=== PATIENT | female | born 1950 | race Caucasian/White ===

== ENCOUNTER 2019-06-08 07:30 | Inpatient (IN) | payer MEDICARE, OTHER ==
[~2019-06-08] VITALS: Ht 167.6 cm; Wt 71.9 kg
[~2019-06-08 07:30] MED LIST: AMLO5 PO; ASPI81EC PO; CITA20 PO; FAMO20 PO; INDERAL; LEVSOD100 PO; MULTI VITAMIN1 EACH PO; OMEP20ER PO
[2019-07-26] MEDS ORDERED: VITAMIN D32000 UNI2 PO (15:19)
--- NOTE | 2019-08-03 06:47 | NUR ---
Ambulatory in Day Surgery History, Chart, Medications and Allergies reviewed before start of procedure. Lungs clear T/O to Auscultation. Patient confirms NPO status and agrees with scheduled surgery. Pre-Op teaching done. Pt verbalizes understanding.
--- NOTE | 2019-08-03 11:18 | NUR ---
ADMISSION TO UNIT PT ARRIVED TO UNIT AT APROX 1045 FROM PACU. AQUACEL DRESSING TO L HIP C/D/I. PT REPORTS FULL SENSATION, CAP REFILL WNL, WIGGLES TOES. PT REPORTS PAIN 2/10-ACHY. POLAR PACK/ BILAT SCD'S/JOSE JUAN HOSE IN PLACE.
--- NOTE | 2019-08-03 18:41 | NUR ---
SHIFT SUMMARY PT POD 0 L MILADIS. AQUACEL DRESSING TO L HIP C/D/I, POLAR PACK IN PLACE. MEDICATED WITH 2 ROXICODONE ONCE FOR PAIN. EMESIS 100ML ONCE, MEDICATED WITH ZOFRAN. UP WITH PT, AMBULATING SBA W/FWW IN HALLWAY. PLAN TO DC HOME TOMORROW IF NO CHANGES
--- NOTE | 2019-08-04 04:26 | NUR ---
SUMMARY POD #1 DRSG REMAINS C/D/I. PT IS AMBULATING 1 ASSIST TO THE BATHROOM USING FWW/GAIT BELT. PAIN MANAGED WITH PO PAIN MEDS. PT IS TOLERATING PO INTAKE. VOIDING WNL. TEDS/SCD'S AND POLAR PACK IN PLACE. CALL LIGHT IN REACH, WCTM.
[2019-08-04 04:33] LABS: BASOPHILS ABSOLUTE AUTO 0.05 K/mm3 (0.00-0.23); BASOPHILS PERCENT AUTO 0 % (0-2); EOSINOPHILS PERCENT AUTO 0 % (0-6); Hemoglobin 10.5 g/dL (11.5-16.0); IMMATURE GRAN ABSOLUTE AUTO 0.05 K/mm3 (0.00-0.10); IMMATURE GRAN PERCENT AUTO 0 % (0-1); LYMPHOCYTES ABSOLUTE AUTO 1.31 K/mm3 (0.84-5.20); LYMPHOCYTES PERCENT AUTO 11 % (21-46); MONOCYTES ABSOLUTE AUTO 0.67 K/mm3 (0.16-1.47); MONOCYTES PERCENT AUTO 6 % (4-13); Mean Corpuscular HGB 30.7 pg (26.0-34.0); Mean Corpuscular HGB Conc 33.9 g/dL (31.5-36.5); Mean Corpuscular Volume 91 fL (80-100); NEUTROPHILS ABSOLUTE AUTO 9.85 K/mm3 (1.96-9.15); NEUTROPHILS PERCENT AUTO 83 % (41-73); Platelet Count 141 K/mm3 (150-400); RDW Coefficient Variation 13.7 % (11.7-14.2); RDW Standard Deviation 44.8 fL (35.1-46.3); Red Blood Cell Count 3.42 M/mm3 (3.80-5.20); White Blood Cell Count 11.93 K/mm3 (4.00-11.30)
[2019-08-04 04:54] LABS: Anion Gap 6 mmol/L (6-16); Blood Urea Nitrogen 12 mg/dL (8-24); Bun/Creatinine Ratio 14.2 (12.0-20.0); CO2, Blood 28 mmol/L (21-32); Calcium, Blood 8.6 mg/dL (8.5-10.1); Chloride, Blood 99 mmol/L (98-108); Creatinine, Blood 0.84 mg/dL (0.40-1.00); Glomerular Filtration Rate >60 (60-); Glucose, Blood 130 mg/dL (70-99); Potassium, Blood 4.3 mmol/L (3.5-5.5); Sodium, Blood 133 mmol/L (136-145)
[2019-08-04] MEDS ORDERED: XARELTO15 MG PO (10:49)
[2019-08-04] MEDS ORDERED: ONDA4ODT PO (11:23)
--- NOTE | 2019-08-04 15:20 | NUR ---
1156 ZOFRAN GIVEN FOR NAUSEA
--- NOTE | 2019-08-04 15:21 | NUR ---
1415 PAIN ROXICODONE GIVEN FOR LEVEL 2-3 PAIN PATIENT IS ANTICIPATING DISCHARGE TO HOME WITHING THE NEXT HOUR. DISCHARGE INSTRUCTIONS REVIEWED WITH PATIENT AND HER DAUGHTER AND QUESTIONS ANSWERED
--- NOTE | 2019-08-04 15:22 | NUR ---
1500 DISCHARGE DISCHARGED TO HOME WITH
== END 2019-08-04 15:12 | disposition home or self-care (01) | DRG 470 ==
LOC: SURS 08-03 06:04 → PRE IP 08-03 07:30 → SURS 08-03 10:53
PROVIDERS: ADMIT Orthopaedic Surgery
PROC: 0SRB04A Replacement of Left Hip Joint with Ceramic on Polyethylene Synthetic Substitute, Uncemented, Open Approach (ICD-10-PCS; principal; 2019-08-03 07:30)
DX: M16.12 Unilateral primary osteoarthritis, left hip (principal)
CPT/HCPCS: 36415; 72170; 80048; 85025; 86850; 86900; 86901; 88300; 97110; 97116; 97161; 97530; C1776; J0171; J0690; J0735; J1100; J1885; J2250; J2370; J2405; J2704; J2765; J2795; J3010; J7120

== ENCOUNTER → 2019-09-01 | Outpatient (CLI) | payer MEDICARE, OTHER ==
[~2019-09-01] MED LIST changes: +ONDA4ODT PO; +VITAMIN D32000 UNI2 PO; +XARELTO15 MG PO
[2019-09-01 17:50] LABS: Source, Urine Clean Catch
[2019-09-01 18:14] LABS: Bacteria Rare /hpf; Granular Casts Rare /lpf (0); Mucus Mod (0-Heavy); Squamous Epithelial Cells Rare /hpf (Few)
== END | disposition home or self-care (01) ==
LOC: LAB SHORT 17:48 → LAB EV 17:48
PROVIDERS: Physician Assistant
DX: M54.17 Radiculopathy, lumbosacral region (principal)
CPT/HCPCS: 81015

== ENCOUNTER → 2019-10-11 | Outpatient (CLI) | payer MEDICARE, OTHER ==
[2019-10-11 16:49] LABS: Appearance, Urine Cloudy (Clear); Bilirubin, Urine Neg (Neg); Blood, Urine 3+ (Neg); Color, Urine Yellow (P-Yellow); Glucose Qualitative, Urine Neg (Neg); Ketones, Urine Neg (Neg); Leukocyte Esterase, Urine Neg (Neg); Nitrite, Urine Neg (Neg); Protein, Urine 1+ (Neg); Urobilinogen, Urine NORM (Normal)
[2019-10-11 17:10] LABS: Amorphous Heavy (0-Heavy); Bacteria Few /hpf; Squamous Epithelial Cells Few /hpf (Few)
== END | disposition home or self-care (01) ==
LOC: LAB SHORT 11:00 → LAB 11:00
PROVIDERS: Internal Medicine
DX: N18.3 Chronic kidney disease, stage 3 (moderate) (principal)
CPT/HCPCS: 81001; 82570; 84156

== ENCOUNTER 2019-11-15 08:26 | Day surgery (SDC) | payer MEDICARE, OTHER ==
[2019-11-17 11:47] LABS: Performing Lab SYMBIODX; Test Name TISSUE BIOPSY
[2019-11-19 19:53] LABS: Result SEE PATHOTH RESULTS
== END 2019-11-15 22:44 | disposition home or self-care (01) ==
LOC: US 08:26
PROVIDERS: Nurse Practitioner
DX: I88.0 Nonspecific mesenteric lymphadenitis (principal); I12.9 Hypertensive chronic kidney disease with stage 1 through stage 4 chronic kidney disease, or unspecified chronic kidney disease; N18.2 Chronic kidney disease, stage 2 (mild); N25.81 Secondary hyperparathyroidism of renal origin; K21.9 Gastro-esophageal reflux disease without esophagitis; E55.9 Vitamin D deficiency, unspecified; E03.9 Hypothyroidism, unspecified; M16.0 Bilateral primary osteoarthritis of hip; E78.5 Hyperlipidemia, unspecified; F39 Unspecified mood [affective] disorder; Z85.3 Personal history of malignant neoplasm of breast; Z79.01 Long term (current) use of anticoagulants; Z79.899 Other long term (current) drug therapy; Z91.011 Allergy to milk products; Z91.018 Allergy to other foods
CPT/HCPCS: 38505; 76942; 88305; 88341; 88342

== ENCOUNTER → 2020-03-09 | Outpatient (CLI) | payer MEDICARE, OTHER | END | disposition home or self-care (01) | LOC: LAB 12:59 → LAB SHORT 12:59 | DX: C82.00 Follicular lymphoma grade I, unspecified site (principal) | CPT/HCPCS: 87015; 87045; 87046; 87205; 87899 ==

== ENCOUNTER 2020-11-06 08:09 | Day surgery (SDC) | payer MEDICARE, OTHER ==
[~2020-11-06] VITALS: Ht 167.6 cm; Wt 72.6 kg
--- NOTE | 2020-11-06 11:40 | NUR ---
PT DISCHARGED TO HOME Discharge instructions reviewed with patient. Patient verbalizes understanding. Copy given to patient to take home. Dressing to procedure site clean, dry, intact with no visible drainage, swelling, erythema or bruising noted. Patient States Post-Procedure ride home has been arranged. Discharged via wheelchair to private car for ride home.
== END 2020-11-06 23:15 | disposition home or self-care (01) ==
LOC: ORD 08:09 → ORSCMMR 08:09 → ORD 09:30 → EDSTATUS 09:30 → ORD 23:15 → LAB FUT 09-19 13:00
PROVIDERS: Surgery
PROC: 05HM33Z Insertion of Infusion Device into Right Internal Jugular Vein, Percutaneous Approach (ICD-10-PCS; principal; 2020-11-06 09:30)
PROC: B5131ZA Fluoroscopy of Right Jugular Veins using Low Osmolar Contrast, Guidance (ICD-10-PCS; principal; 2020-11-06 09:30)
DX: C82.08 Follicular lymphoma grade I, lymph nodes of multiple sites (principal); I10 Essential (primary) hypertension; K21.9 Gastro-esophageal reflux disease without esophagitis; E03.9 Hypothyroidism, unspecified; Z79.899 Other long term (current) drug therapy
CPT/HCPCS: 77001; A9270-GY; C1788; J0690; J1100; J1642; J2370; J2405; J2704; J2765; J3010; J7120

== ENCOUNTER 2023-10-17 17:43 | Emergency (ER) | payer MEDICARE, OTHER ==
[~2023-10-17] VITALS: Ht 167.6 cm; Wt 69.0 kg
[2023-10-17 17:56] VITALS: BP 164/99
== END 2023-10-17 18:35 | disposition home or self-care (01) ==
LOC: ER 17:43
DX: U07.1 COVID-19 (principal); Z91.011 Allergy to milk products; Z91.018 Allergy to other foods; Z79.899 Other long term (current) drug therapy; R06.00 Dyspnea, unspecified; R79.1 Abnormal coagulation profile; Z53.29 Procedure and treatment not carried out because of patient's decision for other reasons
CPT/HCPCS: 71046; 80053; 83880; 84484; 85025; 85379; 99281

== ENCOUNTER → 2023-10-17 | Outpatient (CLI) | payer MEDICARE, OTHER ==
[2023-10-17 12:23] LABS: Albumin, Blood 3.7 g/dL (3.4-5.0); Bilirubin, Total 0.3 mg/dL (0.1-1.0); Bun/Creatinine Ratio 11.8 (12.0-20.0); Calcium, Blood 9.8 mg/dL (8.5-10.1); Creatinine, Blood 0.85 mg/dL (0.40-1.00); Globulin, Blood 3.8 g/dL (2.2-4.0); Total Protein, Blood 7.5 g/dL (6.4-8.2)
[2023-10-17 12:30] LABS: BASOPHILS ABSOLUTE AUTO 0.04 K/mm3 (0.00-0.23); BASOPHILS PERCENT AUTO 2 % (0-2); EOSINOPHILS ABSOLUTE AUTO 0.07 K/mm3 (0.00-0.68); EOSINOPHILS PERCENT AUTO 3 % (0-6); Hematocrit 33.7 % (33.0-51.0); Hemoglobin 11.1 g/dL (11.5-16.0); IMMATURE GRAN ABSOLUTE AUTO 0.07 K/mm3 (0.00-0.10); IMMATURE GRAN PERCENT AUTO 3 % (0-1); LYMPHOCYTES ABSOLUTE AUTO 0.57 K/mm3 (0.84-5.20); LYMPHOCYTES PERCENT AUTO 21 % (21-46); MONOCYTES ABSOLUTE AUTO 0.36 K/mm3 (0.16-1.47); MONOCYTES PERCENT AUTO 13 % (4-13); Mean Corpuscular HGB 25.6 pg (26.0-34.0); Mean Corpuscular HGB Conc 32.9 g/dL (31.5-36.5); Mean Corpuscular Volume 78 fL (80-100); Mean Platelet Volume 9.8 fL (9.1-12.4); NEUTROPHILS ABSOLUTE AUTO 1.61 K/mm3 (1.96-9.15); NEUTROPHILS PERCENT AUTO 59 % (41-73); Platelet Count 309 K/mm3 (150-400); RDW Coefficient Variation 15.1 % (11.7-14.2); RDW Standard Deviation 42.4 fL (35.1-46.3); Red Blood Cell Count 4.33 M/mm3 (3.80-5.20); White Blood Cell Count 2.72 K/mm3 (4.00-11.30)
== END ==
LOC: LAB 12:04 → LAB SHORT 12:04
PROVIDERS: Emergency Medicine
DX: R06.00 Dyspnea, unspecified (principal)
CPT/HCPCS: 80053; 83880; 84484; 85025; 85379

== ENCOUNTER → 2023-12-19 | Outpatient (CLI) | payer SELFPAY | LOC: LAB SHORT 15:43 → LAB 15:43 | DX: L08.9 Local infection of the skin and subcutaneous tissue, unspecified (principal); L57.0 Actinic keratosis; Z48.02 Encounter for removal of sutures | CPT/HCPCS: 87070; 87077; 87147; 87186; 87205 ==

== ENCOUNTER 2024-05-18 09:23 | Day surgery (SDC) | payer MEDICARE, OTHER ==
[~2024-05-18] VITALS: Ht 170.2 cm; Wt 68.1 kg
[2024-05-18] VITALS (15 sets, daily range): BP systolic 93–158; BP diastolic 60–85
[~2024-05-18 09:23] MED LIST changes: +Acetaminophen 500 MG Tab PO SCH; +CALCIUM PO; +CeFAZolin Sodium 2,000 MG in NS 100 ML IV SCH; +Chlorhexidine Mouth Care 15 ML UDC MT SCH; +Lactated Ringer's 1,000 ML IV SCH; +OxyCODONE HCL 10 MG TABCR PO SCH; +Ropivacaine 0.5% HCl/Pf 123.125 MG,EPINEPHrine HCL 0.25 MG,Ketorolac Tromethamine 15 MG... INFIL SCH; +Tranexamic Acid 100 ML IV SCH
[2024-05-18] MEDS ORDERED: ASPI81CH PO ×2 (10:13→12:36)
[2024-05-18] MEDS ORDERED: Promethazine HCl 25 MG Tab PO PRN (10:30)
[2024-05-18] MEDS ORDERED: Prochlorperazine Edisylate 10 mg Vial IV PRN (10:30)
[2024-05-18] MEDS ORDERED: Lactated Ringer's 1,000 ML IV SCH (10:35)
[2024-05-18] MEDS ORDERED: DiphenhydrAMINE HCL 25 MG Cap PO PRN (10:35)
[2024-05-18] MEDS ORDERED: Bisacodyl 10 MG Supp PR PRN (10:35)
[2024-05-18] MEDS ORDERED: Magnesium Hydroxide Conc 10 ML UDC PO PRN (10:35)
[2024-05-18] MEDS ORDERED: Metoclopramide HCl 5MG / ML 2ML Vial IV PRN (10:35)
[2024-05-18] MEDS ORDERED: Ondansetron HCl 2 MG / ML 2ML Vial ONE (11:17)
[2024-05-18] MEDS ORDERED: propofoL 60 ML IV ONE (11:17)
[2024-05-18] MEDS ORDERED: FentaNYL Citrate 50 MCG/ML 2 ML Injection ONE (11:17)
[2024-05-18] MEDS ORDERED: Dexamethasone Sod Phos 10 MG/ML 1ML VIAL ONE (11:17)
[2024-05-18] MEDS ORDERED: Ondansetron HCl 2 MG / ML 2ML Vial IV PRN (11:25)
[2024-05-18] MEDS ORDERED: OxyCODONE HCL 5 MG TAB PO PRN ×2 (11:25)
[2024-05-18] MEDS ORDERED: HYDROmorphone HCl/Pf 1MG SYR IV PRN (11:25)
[2024-05-18] MEDS ORDERED: Ketorolac Tromethamine 15mg Vial IV SCH (12:00)
[2024-05-18] MEDS ORDERED: ePHEDrine Sulfate 50 MG/ML 1ML Injection ONE (13:35)
[2024-05-18] MEDS ORDERED: propofoL 20 ML IV ONE (14:34)
--- NOTE | 2024-05-18 15:51 | NUR ---
PATIENT JUST ARRIVED TO THE FLOOR FROM PACU. POD 0 RIGHT TOTAL HIP PATIENT IS A&OX4. SHE HAD A SPINAL DURING THE PROCEDURE AND REPORTS NUMBNESS FROM THE KNEES DOWN BUT IS ABLE TO WIGGLE HER TOES. PEDAL PULSES ARE STRONG AND WARM TO TOUCH. HER RIGHT HIP HAS AN AQUACEL DRESSING THAT IS C/D/I. POLAR PACK IS IN PLACE ON HER RIGHT HIP. SHE IS LAYING IN BED WITH CALL LIGHT IN REACH TOLERATING SMALL AMOUNTS OF PO INTAKE.
[2024-05-18] MEDS ORDERED: Acetaminophen 500 MG Tab PO SCH (16:00)
--- NOTE | 2024-05-18 17:20 | NUR ---
SHIFT SUMMARY: POD 0 RIGHT TOTAL HIP PATIENT IS A&OX4. VS ARE WNL AND IS ON RA. PATIENT REPORTS 2/10 PAIN IN HER RIGHT HIP. SHE HAS BEEN GIVEN PO OXY, PO TYLENOL, AND IV TORADOL TO MANAGE HER PAIN PER EMAR. HER RIGHT HIP HAS AN AQUACEL DRESSING THAT IS C/D/I. DENIES NUMBNESS OR TINGLING THROUGHOUT ALL EXTREMITIES. SHE IS TOLERATING PO INTAKE AND DENIES NAUSEA OR VOMITING. PATIENT IS LAYING IN BED WITH CALL LIGHT IN REACH. PATIENT CALLS APPROPRIATELY. THE PLAN IS TO WORK WITH PHYSICAL THERAPY TOMORROW. WELL HAVE THE PATIENT VOID BY 2100 TONIGHT PER PROTOCOL AND TO CONTINUE PAIN MANAGEMENT.
[2024-05-18] MEDS ORDERED: Docusate Sodium 100 MG Cap PO SCH (21:00)
[2024-05-18] MEDS ORDERED: CeFAZolin Sodium 2,000 MG in NS 100 ML IV SCH (21:00)
--- NOTE | 2024-05-19 04:33 | NUR ---
SUMMARY- PT HAS BEEN AMBULATORY AND IS VOIDING. PT DISCOMFORT HAS BEEN MANAGED WELL. PT DRESSING INTACT. CALL LIGHT IN REACH.
[2024-05-19 04:50] LABS: BASOPHILS ABSOLUTE AUTO 0.04 K/mm3 (0.00-0.23); BASOPHILS PERCENT AUTO 1 % (0-2); EOSINOPHILS PERCENT AUTO 0 % (0-6); Hematocrit 37.3 % (33.0-51.0); Hemoglobin 12.4 g/dL (11.5-16.0); IMMATURE GRAN ABSOLUTE AUTO 0.07 K/mm3 (0.00-0.10); IMMATURE GRAN PERCENT AUTO 1 % (0-1); LYMPHOCYTES ABSOLUTE AUTO 0.46 K/mm3 (0.84-5.20); LYMPHOCYTES PERCENT AUTO 9 % (21-46); MONOCYTES ABSOLUTE AUTO 0.23 K/mm3 (0.16-1.47); MONOCYTES PERCENT AUTO 5 % (4-13); Mean Corpuscular HGB 26.2 pg (26.0-34.0); Mean Corpuscular HGB Conc 33.2 g/dL (31.5-36.5); Mean Corpuscular Volume 79 fL (80-100); Mean Platelet Volume 9.7 fL (9.1-12.4); NEUTROPHILS ABSOLUTE AUTO 4.24 K/mm3 (1.96-9.15); NEUTROPHILS PERCENT AUTO 84 % (41-73); Platelet Count 193 K/mm3 (150-400); RDW Coefficient Variation 16.4 % (11.7-14.2); Red Blood Cell Count 4.74 M/mm3 (3.80-5.20); White Blood Cell Count 5.04 K/mm3 (4.00-11.30)
[2024-05-19 04:51] VITALS: BP 125/74
[2024-05-19 05:11] LABS: Bun/Creatinine Ratio 17.9 (12.0-20.0); Calcium, Blood 9.3 mg/dL (8.5-10.1); Creatinine, Blood 0.78 mg/dL (0.40-1.00); Potassium, Blood 4.3 mmol/L (3.5-5.5)
[2024-05-19] MEDS ORDERED: Omeprazole 20 MG CapCR PO SCH (06:00)
[2024-05-19] MEDS ORDERED: Levothyroxine Sodium 0.05 MG Tab PO SCH (06:00)
[2024-05-19 07:01] VITALS: BP 135/76
[2024-05-19] MEDS ORDERED: Aspirin 81 MG Chew PO SCH (09:00)
[2024-05-19] MEDS ORDERED: Cholecalciferol 1000 Unit Tablet (=25MCG) PO SCH ×2 (09:00)
[2024-05-19] MEDS ORDERED: Multivitamins 1 Tab PO SCH (09:00)
[2024-05-19] MEDS ORDERED: Calcium Citrate 950 MG Tab PO SCH (09:00)
[2024-05-19] MEDS ORDERED: AmLODIPine Besylate 5 MG Tab PO SCH (09:00)
--- NOTE | 2024-05-19 10:17 | NUR ---
DISCHARGE NOTE: PATIENT AND WERE EDUCATED ON DISCHARGE INSTRUCTIONS. BOTH VERBALIZED UNDERSTANDING OF INSTRUCTIONS AND HAD NO FURTHER QUESTIONS AT THIS TIME. IV WAS TAKEN OUT AND WNL. PAIN IS MANAGED WITH PO PAIN MEDS. HER RIGHT HIP HAS AN AQUACEL DRESSING THAT IS C/D/I. SHE DENIES NUMBNESS OR TINGLING THROUGHOUT EXTREMITIES. PATIENT IS A SBA WITH FWW AND GAIT BELT. SHE IS TOLERATING PO INTAKE AND IS VOIDING. PATIENT IS DRESSED AND HAS PERSONAL ITEMS IN THE ROOM GATHERED. PATIENT IS BEING WHEELCHAIRED OUT TO HUSBANDS CAR TO BE TAKEN HOME. PATIENT WAS GIVEN X2 EXTRA AQUACELS FOR AT HOME DRESSING CHANGE.
== END 2024-05-19 10:00 | disposition home or self-care (01) ==
LOC: ORSCMMR 09:23 → ORD 11:00 → ORSCMMR 11:00 → ORD 12:00 → SURS 15:36 → ORSCMMR 05-19 10:00
PROVIDERS: Orthopaedic Surgery
PROC: 0SR90JZ Replacement of Right Hip Joint with Synthetic Substitute, Open Approach (ICD-10-PCS; principal; 2024-05-18 11:00)
DX: M16.11 Unilateral primary osteoarthritis, right hip (principal); Q65.89 Other specified congenital deformities of hip; E03.9 Hypothyroidism, unspecified; Z85.3 Personal history of malignant neoplasm of breast; Z85.72 Personal history of non-Hodgkin lymphomas; Z79.899 Other long term (current) drug therapy
CPT/HCPCS: 36415; 72170; 80048; 85025; 97110; 97116; 97161; 97530; A9270; C1776; J0171; J0690; J0735; J1100; J1885; J2405; J2704; J2795; J3010; J7120

== ENCOUNTER 2025-11-04 09:13 | Day surgery (SDC) | payer MEDICARE, OTHER ==
[~2025-11-04] VITALS: Ht 167.6 cm; Wt 75.1 kg
[~2025-11-04 09:13] MED LIST changes: +ALLO100 PO; +ASPI81CH PO; -Acetaminophen 500 MG Tab PO SCH; -CeFAZolin Sodium 2,000 MG in NS 100 ML IV SCH; -Chlorhexidine Mouth Care 15 ML UDC MT SCH; -Lactated Ringer's 1,000 ML IV SCH; +MAG GLYCINATE100 MG PO; -OxyCODONE HCL 10 MG TABCR PO SCH; -Ropivacaine 0.5% HCl/Pf 123.125 MG,EPINEPHrine HCL 0.25 MG,Ketorolac Tromethamine 15 MG... INFIL SCH; +TURMERIC750 MG PO; -Tranexamic Acid 100 ML IV SCH; -VITAMIN D32000 UNI2 PO; +VITAMIN D5000 UNIT PO; +Vitamin B Comple1 EA PO
--- NOTE | 2025-11-04 09:55 | NUR ---
AMBULATORY IN DAY SURGERY WITH STEADY GAIT. Pre-Op teaching done. Pt verbalizes understanding. Patient States Post-Procedure ride home has been arranged WITH [employer]. History, Chart, Medications and Allergies reviewed before start of procedure. ALL BELONGINGS PLACED UNDER GURN. CALL LIGHT IN REACH.
[2025-11-04] MEDS ORDERED: Bupivacaine 0.5% HCl 5 MG/ML 30MLVIAL ONE (11:27)
[2025-11-04] MEDS ORDERED: CeFAZolin Sodium 2,000 MG in NS 100 ML IV SCH (11:45)
[2025-11-04] MEDS ORDERED: FentaNYL Citrate 50 MCG/ML 2 ML Injection ONE (11:47)
[2025-11-04] MEDS ORDERED: Phenylephrine HCl 100 MCG/ML-NS 10MLSYR (1MG/10ML) ONE (12:04)
[2025-11-04] MEDS ORDERED: Ondansetron HCl 2 MG / ML 2ML Vial ONE (12:05)
[2025-11-04] MEDS ORDERED: Dexamethasone Sod Phos 10 MG/ML 1ML VIAL ONE (12:05)
[2025-11-04] MEDS ORDERED: CeFAZolin Sodium 1000 mg Vial ONE (12:05)
[2025-11-04] MEDS ORDERED: Ketorolac Tromethamine 30mg Vial ONE (12:06)
[2025-11-04 12:42] VITALS: BP 146/83
[2025-11-04 12:45] VITALS: BP 135/77
[2025-11-04 12:50] VITALS: BP 135/79
[2025-11-04 12:55] VITALS: BP 124/77
[2025-11-04 13:00] VITALS: BP 135/82
--- NOTE | 2025-11-04 13:03 | NUR ---
Patient up to Ambulate independently. Gait steady. Discharge instructions reviewed with patient. Patient verbalizes understanding. Copy given to patient to take home. Patient States Post-Procedure ride home has been arranged. Discharged via wheelchair to private car for ride home.ALL BELONINGS SENT HOME WITH PATIENT.
[2025-11-04 13:17] VITALS: BP 124/76
== END 2025-11-04 23:00 | disposition home or self-care (01) ==
LOC: ORSCMMR 09:13 → ORD 10:45 → ORSCMMR 23:00
PROVIDERS: Student in an Organized Health Care Education/Training Program
PROC: 05HM33Z Insertion of Infusion Device into Right Internal Jugular Vein, Percutaneous Approach (ICD-10-PCS; principal; 2025-11-04 10:45)
PROC: B543ZZA Ultrasonography of Right Jugular Veins, Guidance (ICD-10-PCS; principal; 2025-11-04 10:45)
PROC: 0JH63WZ Insertion of Totally Implantable Vascular Access Device into Chest Subcutaneous Tissue and Fascia, Percutaneous Approach (ICD-10-PCS; principal; 2025-11-04 10:45)
DX: C82.06 Follicular lymphoma grade I, intrapelvic lymph nodes (principal); I10 Essential (primary) hypertension; G47.33 Obstructive sleep apnea (adult) (pediatric); K21.9 Gastro-esophageal reflux disease without esophagitis; F41.9 Anxiety disorder, unspecified; E03.9 Hypothyroidism, unspecified; E78.5 Hyperlipidemia, unspecified; Z79.899 Other long term (current) drug therapy
CPT/HCPCS: 77001; C1788; J0690; J1100; J1642; J1885; J2371; J2405; J2704; J3010; J7120